=== PATIENT | female | born 1970 | race Caucasian/White ===

== ENCOUNTER 2020-08-30 09:23 | Outpatient (REF) | payer OTHER, SELFPAY ==
[2020-08-30 10:02] LABS: COVID-19 Test Negative (Negative)
== END 2020-08-30 09:24 | disposition home or self-care (01) ==
LOC: HO.EMPCOV 09:23
PROVIDERS: Visit Provider Internal Medicine
DX: Z20.828 Contact with and (suspected) exposure to other viral communicable diseases (principal)
CPT/HCPCS: 87635; C9803

== ENCOUNTER → 2022-06-19 13:04 | Outpatient (RCR) | payer OTHER, SELFPAY ==
[2020-07-19 15:08] LABS: COVID-19 Test Negative (Negative); IDNOW Serial# 55D5AD1C
== END | disposition home or self-care (01) ==
LOC: HO.EMPCOV 07-19 14:33
PROVIDERS: Visit Provider Internal Medicine
DX: Z20.828 Contact with and (suspected) exposure to other viral communicable diseases (principal)
CPT/HCPCS: 87635; C9803

== ENCOUNTER 2022-07-03 05:48 | Outpatient (REF) | payer OTHER, SELFPAY ==
[2022-07-03 06:05] LABS: MANUAL DIFF FLAG NO
[2022-07-03 07:24] LABS: Basophils Percent Auto 0.5 % (0-2); Eosinophils Absolute Auto 0.1 X10*3/uL (0.0-0.4); Eosinophils Percent Auto 0.8 % (0-4); Hematocrit 44.3 % (37.0-47.0); Imm Gran Abs Auto 0.04 X10*3/uL (0.00-0.03); Imm Gran Pct Auto 0.7 % (0.0-0.4); Lymphocytes Absolute Auto 2.1 X10*3/uL (1.2-4.9); Lymphocytes Percent Auto 35.2 % (20-40); Mean Corpuscular HGB Conc 33.9 g/dl (31.0-35.0); Mean Corpuscular Hemoglobin 31.3 pg (27.0-33.0); Mean Corpuscular Volume 92.3 fL (80.0-98.0); Mean Platelet Volume 11.7 fL (9.4-12.3); Monocytes Absolute Auto 0.4 X10*3/uL (0.1-1.2); Monocytes Percent Auto 6.9 % (2-11); Neutrophils Absolute Auto 3.3 x10*3/uL (2.0-8.3); Neutrophils Percent Auto 55.9 % (45-73); Platelet Count 269 X10*3/uL (160-400); Red Cell Distribution Width 12.3 % (11.0-16.0); White Blood Count 5.9 X10*3/uL (4.8-10.8)
[2022-07-03 07:54] LABS: Alanine Aminotransferase 58 U/L (0-31); Albumin Level 4.5 g/dL (3.5-5.0); Alkaline Phosphatase 156 U/L (39-117); Anion Gap 16 (12-20); Aspartate Amino Transferase 37 U/L (5-31); Bilirubin Total 0.7 mg/dL (0.0-1.0); Blood Urea Nitrogen 17 mg/dL (9-16); Carbon Dioxide 28 mmol/L (22-29); Chloride 101 mmol/L (96-108); Cholesterol 251 mg/dL; Estimated Glomerular Filt Rate > 60; Glucose Fasting 90 mg/dL (60-99); HDL Cholesterol 59 mg/dL; LDL Cholesterol Calculated 176 mg/dl; Potassium 4.6 mmol/L (3.3-5.1); Sodium 140 mmol/L (135-145); Total Protein 7.8 g/dL (6.5-8.0); Triglycerides 82 mg/dL
[2022-07-03 08:16] LABS: TSH reflex Free T4 1.38 uIU/mL (0.32-4.0); Vitamin D 25-OH Total 36.6 ng/mL (>30)
[2022-07-03 10:12] LABS: Folate 12.3 ng/mL (> or = 4.0); Vitamin B12 386 pg/mL (200-900)
== END 2022-07-03 05:49 | disposition home or self-care (01) ==
LOC: HO.LAB 05:48
PROVIDERS: Visit Provider Nurse Practitioner Family
DX: Z76.89 Persons encountering health services in other specified circumstances (principal)
CPT/HCPCS: 36415; 80053; 80061; 82306; 82607; 82746; 84443; 85025

== ENCOUNTER 2022-07-04 14:29 | Outpatient (REF) | payer OTHER, SELFPAY ==
--- NOTE | ~2022-07-04 | MM_ITS ---
EXAMINATION: MM SCREENING DIGITAL BREAST TOMOSYNTHESIS, BILATERAL CLINICAL INFORMATION: Screening. Asymptomatic. The lifetime risk of breast cancer based on the Tyrer-Cuzick Model is 7.3%. COMPARISON: Mammography: 10/12/2013 and 12/06/2010. TECHNIQUE: Digital breast tomosynthesis is performed in both the craniocaudal and mediolateral oblique views along with computer-aided detection (CAD). Synthesized 2D images are generated from the tomosynthesis. FINDINGS: The breasts are heterogeneously dense, which may obscure small masses (ACR BI-RADS breast composition Category c). No new abnormal dominant mass is appreciated. There are bilateral groupings of calcifications seen which appear to not be skin calcifications on tomosynthesis views. It is difficult to tell if the groupings of calcifications within the left breast are stable or have increased from previous studies due to the very dense breast parenchyma on previous examinations. Recommend supplementary imaging with craniocaudal and 90-degree mediolateral views of both breasts. MM/MM tomosynthesis screening BI IMPRESSION: Bilateral breast calcifications for further evaluation. ASSESSMENT: BI-RADS 0: Incomplete - Need Additional Imaging Evaluation. RECOMMENDATION: 1. Additional views of both breasts. 2. Targeted ultrasound if warranted after review of the additional views. 3. Radiology department staff will contact the patient for additional imaging. This patient's information was entered into a reminder system with a target due date for their next mammogram.
== END 2022-07-04 14:30 | disposition home or self-care (01) ==
LOC: HO.MAMMO 14:29
PROVIDERS: Visit Provider Nurse Practitioner Family
DX: Z12.31 Encounter for screening mammogram for malignant neoplasm of breast (principal)
CPT/HCPCS: 77063; 77067

== ENCOUNTER 2022-07-10 13:46 | Outpatient (REF) | payer OTHER, SELFPAY ==
--- NOTE | ~2022-07-10 | MM_ITS ---
EXAMINATION: MM DIAGNOSTIC DIGITAL MAMMOGRAPHY, BILATERAL CLINICAL INFORMATION: Recall from screening for fine calcifications bilateral breasts, possibly new or increased from remote prior exam 2013. COMPARISON: Mammography: 07/04/2022, outside mammography 10/12/2013, 12/06/2010 ([place]). TECHNIQUE: Digital mammography is performed in the following views: Magnification left CC, magnification left ML x2, magnification right CC, magnification right ML. FINDINGS: The breasts are heterogeneously dense, which may obscure small masses (ACR BI-RADS breast composition Category c). Additional magnification views right breast demonstrate 3 small uniform round tight groups of calcifications central and anterior medial breast, some visible on remote outside mammography 2013. No pleomorphic types or ductal distribution. Additional magnification views left breast demonstrate tight group of uniform round calcifications central inner breast, some likely present on outside remote mammography 2013. No pleomorphic types or ductal distribution. Results are discussed with the patient at time of visit. The bilateral calcifications have similar characteristics and at least some were present on outside imaging 2014. They are probably benign and will be reassessed again in 6 months. MM/MM added views BI IMPRESSION: Bilateral probable benign tightly grouped calcifications, some present on outside imaging 2013. ASSESSMENT: BI-RADS 3: Probably Benign RECOMMENDATION: Diagnostic bilateral mammography in 6 months. This patient's information was entered into a reminder system with a target due date for their next mammogram.
== END 2022-07-10 13:47 | disposition home or self-care (01) ==
LOC: HO.MAMMO 13:46
PROVIDERS: Visit Provider Nurse Practitioner Family
DX: R92.1 Mammographic calcification found on diagnostic imaging of breast (principal)
CPT/HCPCS: 77066

== ENCOUNTER → 2022-07-14 07:54 | Outpatient (BNVA) | payer OTHER, SELFPAY | PROVIDERS: PCP Nurse Practitioner Family; Visit Provider Physician Assistant Medical | DX: Z13.89 Encounter for screening for other disorder (principal) | CPT/HCPCS: 29515; 73610; 99203 ==

== ENCOUNTER 2022-07-16 11:57 | Outpatient (REF) | payer OTHER, SELFPAY ==
--- NOTE | ~2022-07-16 | XR_ITS ---
EXAMINATION: XR ANKLE, LEFT CLINICAL INFORMATION: Trauma, follow-up probable fracture distal lateral malleolus. COMPARISON: Left ankle radiographs 07/14/2022. TECHNIQUE: AP, lateral, and mortise views of the left ankle. FINDINGS: There is horizontal linear nondisplaced fracture at tip lateral malleolus again noted. Corticated ossicle is also noted adjacent to tip lateral malleolus. The ankle mortise is symmetric. The medial and posterior malleoli appear intact. No visible osteochondral lesion talar dome. XR/XR ankle LT min 3V IMPRESSION: 1. Nondisplaced fracture tip lateral malleolus. Ankle mortise symmetric. 2. Corticated ossicle adjacent to tip lateral malleolus.
== END 2022-07-16 11:58 | disposition home or self-care (01) ==
LOC: HO.HOSX 11:57
PROVIDERS: Visit Provider Physician Assistant
DX: S82.892A Other fracture of left lower leg, initial encounter for closed fracture (principal); W18.09XA Striking against other object with subsequent fall, initial encounter; Y93.9 Activity, unspecified; Y92.9 Unspecified place or not applicable; Y99.9 Unspecified external cause status
CPT/HCPCS: 73610; 99202

== ENCOUNTER 2022-07-25 09:05 | Emergency (ER) | payer OTHER, SELFPAY ==
[2022-07-25 09:10] VITALS: BP 142/85; PULSE 76; RESP 16; TEMP 36.5; O2SAT 98; BMI 27.4
--- NOTE | 2022-07-25 09:12 | ED_ITS ---
HPI - Extremity Injury (Lower) General Chief Complaint: Extremity Injury, Lower Stated Complaint: L ankle inj/work inj Time Seen by Provider: 07/25/22 09:09 Source: patient Mode of arrival: ambulatory Limitations: no limitations History of Present Illness HPI Narrative: 52 yo female with a known left ankle fracture (distal fibula avulsion fx) after a work related injury (fall) on 07/14. Seen by orthopedics 07/16 and placed in walking boot (recommended WBAT, rest, ice, PT). Patient has follow-up in 2 weeks with ortho. Supposed to start PT 08/04. Reports continued pain/swelling despite following orthopedics recommendations. Taking motrin 800mg once daily, supplementing with tylenol. Using boot and has been doing some weight bearing but is uncomfortable. Using a scooter at home and work. No new injury. Related Data Previous Rx's Medication Instructions Recorded ibuprofen 800 mg tablet 800 mg PO TID PRN pain #30 tabs 07/14/22 Allergies Allergy/AdvReac Type Severity Reaction Status Date / Time bees Allergy Intermediate Swelling Uncoded 07/25/22 09:15 Review of Systems Review of Systems: Yes all other systems are reviewed and are negative Constitutional: Constitutional: Reports no additional constitutional complaints, Denies body ache(s), Denies chills, Denies fever(s), Denies headache(s) and Denies weakness Eyes: Eyes: Reports no additional eye complaints and Denies change in vision ENT: Reports system reviewed and no additional complaints, except as documented, Denies dizziness, Denies headache(s), Denies nasal congestion, Denies nasal discharge and Denies neck pain Cardiovascular: Cardiovascular: Reports no additional cardiovascular complaints, Denies chest pain, Denies leg edema and Denies dyspnea Respiratory: Respiratory: Reports no additional respiratory complaints, Denies cough and Denies dyspnea Gastrointestinal: Gastrointestinal: Reports no additional gastrointestinal complaints, Denies abdominal pain, Denies diarrhea, Denies nausea and Denies vomiting Genitourinary: Genitourinary: Reports no additional female genitourinary complaints and Denies urinary incontinence Musculoskeletal: Musculoskeletal: Reports no additional musculoskeletal complaints, Denies back pain, Reports arthralgias, Reports joint swelling, Denies neck pain, Denies numbness and Denies tingling Integumentary/Breasts: Skin/Breast: Reports system reviewed and no additional complaints, except as docu and Denies rash Neurologic: Reports system reviewed and no additional complaints, except as documented, Denies Abnormal speech present, Denies dizziness, Denies headache(s), Denies numbness, Denies tingling and Denies weakness PMFSH Past Medical History Attestation statement: The following information was validated with the patient. Source: old records reviewed and nursing notes reviewed Surgical History H/O tubal ligation Family History Family History Mother Diabetes Asthma Father Lung cancer Social History Social History Housing: House Patient Tobacco Use Status: Never used Tobacco Second Hand Smoke Exposure: No Advance Directives: No Advance Directives Information Provided: No service: No Current occupational status: employed Cognitive needs: No Hearing needs: No Vision needs: No Physical Exam Vital Signs: Vital Signs: Last Vital Signs Temp 97.7 F 07/25/22 09:10 Pulse 76 07/25/22 09:10 Resp 16 07/25/22 09:10 BP 142/85 H 07/25/22 09:10 Pulse Ox 98 07/25/22 09:10 BMI result Body Mass Index 27.4 Const: General: cooperative, healthy appearing, comfortable and no acute distress Orientation/consciousness: patient oriented x3 Limitations: no limitations HEENT: Head: Yes normal to inspection Ears: hearing grossly normal bilaterally General nose exam: Normal external nose present Face and sinus: Yes normal facial exam Mouth: Normal oral and palatal mucosa present Throat: Yes posterior oropharynx normal Eyes: General: appearance normal, both eyes and all related structures Pupils: Equal, round and reactive pupils present Neck: Neck: Yes normal visual inspection Chest: Chest palpation & inspection: normal inspection of the chest Resp: Effort & Inspection: normal respiratory effort Cardio: Peripheral pulses: Peripheral pulses 2+ throughout GI: Inspection: Yes normal to inspection Palpation (GI): Soft to palpation and nontender Auscultation: normal bowel sounds Back/Spine/Pelvis: Thoracic/Lumbar Spine: thoracic and lumbar spine normal to inspection Skin: General skin exam: no rashes or lesions noted Neuro: General: patient oriented x3, no focal motor deficits and normal sensation to monofilament Cranial nerves: Yes Equal, round and reactive pupils present Cognition (Neuro): normal cognition Speech: No Abnormal speech present Gait exam (Neuro): Normal gait present Motor exam (neuro): 5/5 motor strength present throughout Extrem: Other: There is swelling and tenderness to the left lateral ankle Mild tenderness over the posterior ankle with negative orona test. 2+ DP/PT pulses distal sensation normal Pain with ROM but patient able MDM - Extremity Injury (Lower) MDM Narrative Medical decision making narrative: Continued left ankle pain/swelling with diagnosis of left fibula avulsion fracture on 07/14 after work related injury despite WBAT with ortho boot, ice, elevation, prn motrin/tylenol. No new injury or trauma. Patient states I just want to make sure its okay. Concerned over continue pain/swelling 11 days from initial injury. Patient on exam with tenderness/swelling over lateral mallelous. NV intact distally. ROM intact but painful. Seems she is not taking OTC a frequently as allowed. Recommended increasing frequency of motrin/tylenol, continue recommendations from orthopedics and continue to follow with ortho/PT. Fracture with expected healing. Unable to assess ligamental injury d/t swelling Patient may also have sprain/ligamental injury and should continue to follow with ortho. Considered achilles tendon rupture, septic joint Medical Records Attestation: I reviewed the patient's medical records. Lab Data Attestation: I reviewed the patient's lab results. Discharge Plan Discharge Clinical Impression: Avulsion fracture of ankle Patient Disposition: Home, Self-Care Instructions: Ankle Fracture (ED) Additional Instructions: Continue to follow recommendations by Orthopedics Take ibuprofen 3 times daily as needed. Add Tylenol rest, elevation, ice Prescriptions: No Action ibuprofen 800 mg tablet 800 mg PO TID PRN (Reason: pain) Qty: 30 0RF Referrals: [facility] [place] Orthopedic Surgeons [Provider Group] - 5 days Interventions: ED Discharge Assessment Last Done: 07/25/22 09:47 Discharge Date/Time: 07/25/22 09:48
== END 2022-07-25 09:48 | disposition home or self-care (01) ==
PROVIDERS: Emergency Provider Emergency Medicine Emergency Medical Services; PCP Nurse Practitioner Family
DX: M25.572 Pain in left ankle and joints of left foot (principal); S82.402D Unspecified fracture of shaft of left fibula, subsequent encounter for closed fracture with routine healing; X58.XXXD Exposure to other specified factors, subsequent encounter
CPT/HCPCS: 99282

== ENCOUNTER 2022-08-14 12:13 | Outpatient (REF) | payer OTHER, SELFPAY ==
--- NOTE | ~2022-08-14 | XR_ITS ---
EXAMINATION: XR ANKLE, LEFT XR FOOT, LEFT CLINICAL INFORMATION: Fracture, pain. Follow-up. COMPARISON: Radiographs left ankle 07/16/2022, 07/14/2022 TECHNIQUE: Left ankle is imaged in 3 views. Left foot is imaged in 3 views. There are total of 6 views. FINDINGS: There is nondisplaced transverse fracture at tip lateral malleolus. An adjacent corticated ossicle is again noted. The posterior and medial malleoli appear intact and the ankle mortise is symmetric. The subtalar joint is unremarkable. The retrocalcaneal recess is preserved. Again, there is mild spurring from the dorsal navicular. The left foot shows no acute or healing fracture or dislocation or arthropathy. XR/XR ankle LT min 3V IMPRESSION: 1. Nondisplaced transverse fracture tip lateral malleolus, stable. 2. No acute or healing fracture left foot.
--- NOTE | ~2022-08-14 | XR_ITS ---
EXAMINATION: XR ANKLE, LEFT XR FOOT, LEFT CLINICAL INFORMATION: Fracture, pain. Follow-up. COMPARISON: Radiographs left ankle 07/16/2022, 07/14/2022 TECHNIQUE: Left ankle is imaged in 3 views. Left foot is imaged in 3 views. There are total of 6 views. FINDINGS: There is nondisplaced transverse fracture at tip lateral malleolus. An adjacent corticated ossicle is again noted. The posterior and medial malleoli appear intact and the ankle mortise is symmetric. The subtalar joint is unremarkable. The retrocalcaneal recess is preserved. Again, there is mild spurring from the dorsal navicular. The left foot shows no acute or healing fracture or dislocation or arthropathy. XR/XR foot LT min 3V IMPRESSION: 1. Nondisplaced transverse fracture tip lateral malleolus, stable. 2. No acute or healing fracture left foot.
== END 2022-08-14 12:14 | disposition home or self-care (01) ==
LOC: HO.HOSX 12:13
PROVIDERS: Visit Provider Physician Assistant
DX: S82.892D Other fracture of left lower leg, subsequent encounter for closed fracture with routine healing (principal)
CPT/HCPCS: 73610; 73630; 99212

== ENCOUNTER 2022-08-26 09:24 | Outpatient (REF) | payer OTHER, SELFPAY ==
--- NOTE | ~2022-08-26 | US_ITS ---
EXAMINATION: US ABDOMEN LIMITED CLINICAL INFORMATION: Other specified abnormal findings of blood chemistry. COMPARISON: None TECHNIQUE: Real-time imaging of the right upper quadrant abdominal viscera. FINDINGS: PANCREAS: Normal. LIVER: The liver is normal in size. The liver contour is normal. Echogenicity is heterogeneous and borderline increased. No focal hepatic lesion. There is no intrahepatic biliary duct dilatation seen. GALLBLADDER: The gallbladder is physiologically distended without evidence of stones, sludge, polyps, wall thickening or pericholecystic fluid. COMMON BILE DUCT: Normal in caliber measuring 0.5 cm in diameter. RIGHT KIDNEY: A single 5 mm echogenic focus without twinkle artifact seen in the [id number] right kidney which does not meet full criteria for a calculus. No hydronephrosis. No definitive renal calculi or focal parenchymal lesions. The kidney measures 9.5 cm in maximum dimension. FREE FLUID: None. US/US abdomen limited IMPRESSION: Borderline increased echogenicity of the liver.
== END 2022-08-26 09:25 | disposition home or self-care (01) ==
LOC: HO.US 09:24
PROVIDERS: Visit Provider Nurse Practitioner Family
DX: R79.89 Other specified abnormal findings of blood chemistry (principal)
CPT/HCPCS: 76705

== ENCOUNTER 2022-08-29 06:52 | Outpatient (REF) | payer OTHER, SELFPAY ==
[2022-08-29 08:11] LABS: HBS Num1 19.12 mIU/mL (0-7.99); HBc Num1 0.09 S/CO (0.00-0.79); Hepatitis A Antibody IgM 0.14 Index (0-0.79); Hepatitis B Core Antibody Nonreactive (Nonreactive); Hepatitis B Surface Antigen Negative (Negative); ~Hepatitis A Antibody IgM Nonreactive (Nonreactive); ~Hepatitis B Surface Antibody REACTIVE (Nonreactive); ~Hepatitis C Antibody Nonreactive (Nonreactive)
== END 2022-08-29 06:53 | disposition home or self-care (01) ==
LOC: HO.LAB 06:52
PROVIDERS: Visit Provider Nurse Practitioner Family
DX: R79.89 Other specified abnormal findings of blood chemistry (principal)
CPT/HCPCS: 36415; 86704; 86706; 86709; 86803; 87340

== ENCOUNTER 2022-09-25 06:14 | Outpatient (REF) | payer OTHER, SELFPAY | END 2022-09-25 06:15 | disposition home or self-care (01) | LOC: HO.HOSX 06:14 | PROVIDERS: Visit Provider Physician Assistant | DX: Z13.89 Encounter for screening for other disorder (principal) ==

== ENCOUNTER 2022-10-06 14:00 | Outpatient (RCR) | payer OTHER, SELFPAY ==
--- NOTE | 2022-08-04 16:04 | MHC.PT.EP ---
[facility] [place] Office [place] Office [place] Office [address] [phone] F: [phone] F: [phone] F: [phone] F: [phone] Physical Therapy Plan of Care Date of Evaluation: Date of Surgery: NA Diagnosis: Avulsion fracture of L ankle Assessment: Nicolasa is a 53 year old female who is referred to PT for avulsion fracture of L ankle . She sustained the injury secondary to a fall during which she twisted her ankle. She is 3 weeks post injury. She is currently using a walking boot and is WBAT however uses a scooter for long distance ambulation. On PT examination she presented with mild swelling, TTP over lateral malleoli L side, 3/10 pain at the lowest and 6/10 pain with sudden ankle movements, walking, decreased ankle ROM, decreased LE strength, altered posture, balance and gait. She is independent with ADLs but takes longer to complete them. 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 She would benefit from skilled PT to address the aforementioned impairments and improve tolerance to functional activities. Frequency and Duration: The patient will be seen 2/week for 7 weeks Short Term Goals: 1. Pt will have 50% decrease in pain which will enable her to walk with her boot for 30 minutes in 2 weeks. 2. Pt will be able to move her ankle through all planes of motion without pain which will enable her to perform step ups with boot in 3 weeks. Custodial Goals: 1. Pt will demonstrate an increase in muscle strength by 1 grade which will enable her to walk and negotiate stairs without boot in 6 weeks. 2. Pt will be independent with HEP and return to PLOF in 7 weeks. Treatment Plan: Modalities to reduce pain, spasms and effusion. Manual therapy to restore motion and function. Therapeutic exercise to improve strength and flexibility. Neuromuscular re-education for posture and balance. Therapeutic activities to return to functional activities of daily living. Electronically signed by: Tanesha Sheridan PT DPT Please sign and return to therapist. Thank you for your referral.
--- NOTE | 2022-11-25 14:28 | MHC.PT.DC ---
[facility] [place] Office [place] Office [place] Office [address] [phone] F: [phone] F: [phone] F: [phone] F: [phone] Physical Therapy Discharge Report Diagnosis: Avulsion fracture of L ankle Date of Surgery: NA Date of Evaluation: 08/04/22 Date of Discharge: 11/25/22 Treatments to Date: 15 Cancellations to Date: 0 No Shows to Date: Discharge Status: Improved Function Independent with HEP Discharge Summary: Nicolasa completed 15 PT visits and made significant improvements. She was independent with her HEPs as well. She is therefore being d/c from PT. Electronically signed by: Tanesha Sheridan, PT DPT Please sign and return to therapist. Thank you for your referral.
== END 2022-11-25 14:29 | disposition home or self-care (01) ==
LOC: HO.PT 14:00
PROVIDERS: Visit Provider Physician Assistant
DX: S82.892D Other fracture of left lower leg, subsequent encounter for closed fracture with routine healing (principal); M76.72 Peroneal tendinitis, left leg
CPT/HCPCS: 97110; 97112; 97140; 97161

== ENCOUNTER 2022-10-27 11:00 | Outpatient (REF) | payer OTHER, SELFPAY ==
--- NOTE | ~2022-10-27 | XR_ITS ---
EXAMINATION: XR ANKLE, LEFT CLINICAL INFORMATION: Left ankle pain. COMPARISON: 08/14/2022. TECHNIQUE: AP, lateral, and mortise views of the left ankle. XR/XR ankle LT min 3V FINDINGS/IMPRESSION: Old avulsion fractures involving the tip of the lateral malleolus appear unchanged compared with 08/14/2022. No new fracture or dislocation is appreciated. Mild soft tissue swelling is present over the left lateral malleolus, probably improved.
== END 2022-10-27 11:01 | disposition home or self-care (01) ==
LOC: HO.HOSX 11:00
PROVIDERS: Visit Provider Physician Assistant
DX: S82.892D Other fracture of left lower leg, subsequent encounter for closed fracture with routine healing (principal); X58.XXXD Exposure to other specified factors, subsequent encounter
CPT/HCPCS: 73610

== ENCOUNTER 2022-10-28 09:02 | Outpatient (REF) | payer OTHER, SELFPAY ==
--- NOTE | ~2022-10-28 | MR_ITS ---
EXAMINATION: MRI OF THE LEFT FOOT WITHOUT CONTRAST CLINICAL INFORMATION: Sprain of the tarsometatarsal ligament. Pain in the top of the foot. COMPARISON: None TECHNIQUE: Multiplanar MR imaging was obtained through the right forefoot and midfoot without contrast material on a 1.5 [place] magnet. FINDINGS: Lisfranc ligament is intact. No evidence of acute ligamentous injuries at the tarsometatarsal joints. No fracture or malalignment at the midfoot and forefoot. Edema signal is evident in the plantar and distal margins of the second metatarsal head, which may correspond to an osseous contusion. No discrete fracture lines are identified in this region. Degenerative subchondral marrow changes could also account for this signal abnormality, though the second MTP joint appears relatively well-preserved. Mild osteoarthritis is evident at the second toe DIP joint as well as the first MTP joint. Intrinsic foot musculature is normal in signal intensity without atrophy or edema signal. Tendons are intact without tears, tendinosis, or tenosynovitis. Plantar fascia is intact without appreciable fasciitis. MR/MR foot LT wo con IMPRESSION: Intact Lisfranc ligament. Edema signal in the second metatarsal head may correspond to an osseous contusion. No fractures. 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
== END 2022-10-28 09:03 | disposition home or self-care (01) ==
LOC: HO.MRI 09:02
PROVIDERS: Visit Provider Physician Assistant
DX: S93.629A Sprain of tarsometatarsal ligament of unspecified foot, initial encounter (principal); X58.XXXA Exposure to other specified factors, initial encounter; Y93.9 Activity, unspecified; Y92.9 Unspecified place or not applicable; Y99.9 Unspecified external cause status
CPT/HCPCS: 73718

== ENCOUNTER → 2022-11-07 11:39 | Outpatient (BNVA) | payer OTHER, SELFPAY | PROVIDERS: PCP Nurse Practitioner Family; Visit Provider Physician Assistant | DX: Z13.89 Encounter for screening for other disorder (principal) ==

== ENCOUNTER 2023-01-27 14:45 | Outpatient (REF) | payer OTHER, SELFPAY ==
--- NOTE | ~2023-01-27 | MM_ITS ---
EXAMINATION: MM DIAGNOSTIC DIGITAL BREAST TOMOSYNTHESIS, BILATERAL CLINICAL INFORMATION: Short interval six-month follow-up probable benign bilateral tightly grouped calcifications. The lifetime risk of breast cancer based on the Tyrer-Cuzick Model is 7%. COMPARISON: Mammography: 07/10/2022, 07/04/2022 (BI-RADS 0), 10/12/2013 ([place]) TECHNIQUE: Digital breast tomosynthesis is performed in both the craniocaudal and mediolateral oblique views along with computer-aided detection (CAD). Synthesized 2D images are generated from the tomosynthesis. Additional bilateral magnification CC, right magnification ML, and left magnification ML x2 views are obtained. FINDINGS: The breasts are heterogeneously dense, which may obscure small masses (ACR BI-RADS breast composition Category c). There is a fibronodular parenchymal pattern similar to prior exams. No significant mass or architectural abnormality or developing density. Small intramammary node again suggested posterior upper left breast. The axilla and skin contours are unremarkable. Magnification views show stable tightly grouped calcifications similar to prior diagnostic exam, left mid inner quadrant, and right central and right anterior medial breast. Calcifications will be reassessed again at time of annual bilateral mammography, due in 6 months. Results are provided to the patient at time of visit by the technologist. MM/MM tomosynthesis diagnostic BI IMPRESSION: Probable benign tightly grouped calcifications bilateral breasts, similar to prior diagnostic mammography. ASSESSMENT: BI-RADS 3: Probably Benign RECOMMENDATION: Diagnostic mammography at time of annual bilateral exam, due in 6 months. This patient's information was entered into a reminder system with a target due date for their next mammogram.
== END 2023-01-27 14:46 | disposition home or self-care (01) ==
LOC: HO.MAMMO 14:45
PROVIDERS: PCP Nurse Practitioner Family; Visit Provider Nurse Practitioner Family
DX: R92.1 Mammographic calcification found on diagnostic imaging of breast (principal)
CPT/HCPCS: 77062; 77066

== ENCOUNTER 2025-01-24 14:52 | Outpatient (AMB) | payer OTHER, SELFPAY ==
--- NOTE | 2025-01-24 14:57 | MHC.PC.OV ---
Vital Signs 01/24/25 15:01 Height 5 ft 2 in Weight 155 lb 8 oz BMI 28.4 BP 126/78 Blood Pressure Location Lt brachial Position Sitting Pulse 84 Pulse Source Pulse Oximeter Temp 97.3 F Temp Source Temporal Artery Scan Pulse Oximetry (%) 97 Oxygen Delivery Method Room Air Intake Visit Reasons: Physical Try Out Person Required: No Accompanied by: Self / Same As Patient Allergies bees Allergy (Intermediate, Uncoded 01/24/25 15:26) Swelling Tobacco use date assessed: 01/24/25 Dental Screening Dental Screen Date: 01/24/25 Did you have a dental visit in the last 12 months?: Yes Did you have a dental problem in the last 6 months where you did not have access to dental care?: No Was dental information given to patient?: Patient has dentist HPI Physical HPI Details Dentist: no, about a year on a half Eye: Reports that she needs to make an appt Snellen: Right: Left: Corrected vision: no STI screening: Colonoscopy: Reports that she would try the cologard instead Pap Smer: no in a while mammogram: up to date PHQ-9: Flu: up to date COVID: x2 Tdap:2009- given in office today Diet: regular Exercise:no, reports that she does not have any energy. appointment on with obgyn, she is going throughing menopause normal exam. 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 1. Little interest or pleasure in doing things: more than half the days 2. Feeling down, depressed, or hopeless: several days 3. Trouble falling or staying asleep, or sleeping too much: several days 4. Feeling tired or having little energy: several days 5. Poor appetite or overeating: not at all 6. Feeling bad about yourself - or that you are a failure or have let yourself or your family down: not at all 7. Trouble concentrating on things, such as reading the newspaper or watching television: not at all 8. Moving or speaking so slowly that other people could have noticed. Or the opposite - being so fidgety or restless that you have been moving around a lot more than usual: not at all 9. Thoughts that you would be better off or of hurting yourself in some way: not at all Total score: 5 [id number] - PHQ-9 Billing: Yes Source: Developed by Drs. Bismark Flanagan, Yue Ross, Ruddy Stahl and colleagues, with an educational aliyah from [employer]. Thrive Questionnaire Date Thrive assessed: 01/24/25 I am a: Patient What is your living situation today?: I have a steady place to live Within the past 12 months, did the food you bought not last and you didn't have the money to get more?: Never true Within the past 12 months, did you worry whether your food would run out before you got money to buy more?: Never true Do you have trouble paying for medicines?: No Do you have trouble getting transportation to medical appointments?: No Do you have trouble paying your heating and electricity bill?: No Do you have trouble taking care of your child, family member or friend?: No Do you have trouble with day-to-day activities such as bathing, preparing meals, shopping, managing finances, etc.?: No Are you currently unemployed and looking for a job?: No Are you interested in more education?: No Please select the resources that you would like help with: None Currently or been in a relationship where the following occur: No concerns reported THRIVE Score: 0 AUDIT C Alcohol Use Questionnaire (AUDIT-C) 1. How often do you have a drink containing alcohol?: Monthly or less 2. How many drinks containing alcohol do you have on a typical day when you are drinking?: 1 or 2 3. How often do you have six or more drinks on one occasion?: Never Total Score: 1 BLAZE-7 AMB Questionnaire BLAZE-7 Date BLAZE - 7 assessed: 01/24/25 Feeling nervous, anxious, or on edge: 0 = Not at all Not being able to stop or control worryin = Not at all Worrying too much about different things: 1 = Several days Trouble relaxin = Several days Being so restless that it is hard to sit still: 0 = Not at all Becoming easily annoyed or irritable: 1 = Several days Feeling afraid as if something awful might happen: 0 = Not at all Total BLAZE-7 score (0-4 normal; 5-9 mild; 10-14 moderate; 15-21 severe): 3 Source: Developed by Drs. Bismark Flanagan, Yue Ross, Ruddy Stahl and colleagues, with an educational aliyah from [employer]. BLAZE-7 Assessment Billing BLAZE-7 Assessment Tool: BLAZE-7 Assessment 02313 Review of Systems Const Denies headache(s) Eyes Denies loss of vision ENT Denies vertigo, Denies dizziness, Denies headache(s) and Denies sore throat Card Denies chest pain, Denies leg edema and Denies lightheadedness Resp Denies cough, Denies hemoptysis and Denies wheezing GI Denies abdominal pain, Denies melena, Denies constipation, Denies diarrhea and Denies vomiting Denies urinary frequency, Denies dysuria and Denies urinary urgency Musc Denies arthralgias, Denies joint swelling, Denies numbness and Denies tingling Neuro Denies Abnormal speech present, Denies behavioral changes, Denies vertigo, Denies dizziness, Denies headache(s), Denies loss of vision, Denies memory loss, Denies numbness and Denies tingling Psych Denies anxiety, Denies behavioral changes, Denies depression, Denies memory loss and Denies panic attacks Edu/Lymph Denies easy bleeding and Denies easy bruising Aller/Immun Denies wheezing Physical exam (Primary Care) Vital Signs: Last Vital Signs Temp 97.3 F 01/24/25 15:01 Pulse 84 01/24/25 15:01 BP 126/78 01/24/25 15:01 Pulse Ox 97 01/24/25 15:01 Oxygen Delivery Method Room Air 01/24/25 15:01 BMI result Body Mass Index 28.4 Tobacco/Smoking Status: Tobacco use Status Tobacco use date assessed 01/24/25 01/24/25 15:03 Patient Tobacco Use Status Never used Tobacco 01/24/25 14:57 e-Cigarette/Vaping Use Never Used 01/24/25 15:03 PHQ-9: PHQ-9 Score PHQ-9: Total score 5 01/24/25 15:27 Thrive Assessment: Date of Thrive Assessment Date Thrive assessed 01/24/25 01/24/25 15:00 Currently or been in a relationship where the following occur: No concerns reported Const General: healthy appearing, no acute distress, alert and awake Nutritional Appearance: well nourished Orientation/consciousness: oriented to person, oriented to place and oriented to time HENMT Ears: TM's normal bilaterally General nose exam: Normal nasal mucous membranes and turbinates present Eyes Conjunctivae: conjunctivae normal Sclerae: sclerae normal Pupils: Equal, round and reactive pupils present Neck Neck: Yes no lymphadenopathy and Yes no JVD Thyroid: Thyroid normal Carotids: no bruits Resp Effort & Inspection: normal respiratory effort and not tachypneic Auscultation: no crackles, no rales, no rhonchi and no wheezes Cardio Rate: regular rate Rhythm: regular rhythm Heart sounds: no murmurs and normal S1 and S2 GI Palpation (GI): Soft to palpation, nontender, no hepatomegaly and no splenomegaly Auscultation: normal bowel sounds Skin General skin exam: no rashes or lesions noted and dry skin Neuro General: oriented to person, oriented to place and oriented to time Cranial nerves: Yes Equal, round and reactive pupils present Speech: No Abnormal speech present Gait exam (Neuro): Normal gait present Motor exam (neuro): no tremor noted Extrem Right upper extremity: full ROM Left upper extremity: full ROM Right lower extremity: full ROM; no edema Left lower extremity: full ROM; no edema Psych Mental Status: mental status grossly normal Speech and movement: Normal speech and movement present Affect: normal affect Attitude: cooperative Thought process: Normal thought process present Immunizations Boostrix Tdap 2.5 Lf unit-8 mcg-5 Lf/0.5 mL intramuscular syringe Performing Provider: REGINA Medina [place] [facility] [place] [facility] Administered by: TRACY Mtz on 01/24/25 15:43 Dose Route Admin Location Dispensed Lot Number Expiration Date [facility] Regulatory Manager 0.5 mL IM Right Deltoid 0.5 mL [id number] 04/26/27 [id number] [employer] VIS Given Date VIS Provided VIS Publication Date 01/24/25 Single Vaccine 24 Eligibility Eligibility Date Funding Source Not VFC Eligible 01/24/25 Private Coding Additional Codes BLAZE-7 Assessment Billing - BLAZE-7 Assessment Tool: BLAZE-7 Assessment 42142 ([id number]) PHQ-9 - 79817 - PHQ-9 Billing: Yes ([id number]) Assessment & Plan Assessment & Plan Orders: Orders TDaP Immunization Today Z23 - Encounter for immunization Comprehensive [place]. Panel Fast Today E66.3 - Overweight, E78.5 - Hyperlipidemia, unspecified, K76.0 - Fatty (change of) liver, not elsewhere classified, N95.1 - Menopausal and female climacteric states, R53.83 - Other fatigue, R79.89 - Other specified abnormal findings of blood chemistry, Z00.00 - Encounter for general adult medical examination without abnormal findings Lipid Panel Today E66.3 - Overweight, E78.5 - Hyperlipidemia, unspecified, K76.0 - Fatty (change of) liver, not elsewhere classified, N95.1 - Menopausal and female climacteric states, R53.83 - Other fatigue, R79.89 - Other specified abnormal findings of blood chemistry, Z00.00 - Encounter for general adult medical examination without abnormal findings Hemoglobin A1c Today E66.3 - Overweight, E78.5 - Hyperlipidemia, unspecified, K76.0 - Fatty (change of) liver, not elsewhere classified, N95.1 - Menopausal and female climacteric states, R53.83 - Other fatigue, R79.89 - Other specified abnormal findings of blood chemistry, Z00.00 - Encounter for general adult medical examination without abnormal findings Complete Blood Count Auto Diff Today E66.3 - Overweight, E78.5 - Hyperlipidemia, unspecified, K76.0 - Fatty (change of) liver, not elsewhere classified, N95.1 - Menopausal and female climacteric states, R53.83 - Other fatigue, R79.89 - Other specified abnormal findings of blood chemistry, Z00.00 - Encounter for general adult medical examination without abnormal findings TSH reflex Free T4 Today E66.3 - Overweight, E78.5 - Hyperlipidemia, unspecified, K76.0 - Fatty (change of) liver, not elsewhere classified, N95.1 - Menopausal and female climacteric states, R53.83 - Other fatigue, R79.89 - Other specified abnormal findings of blood chemistry, Z00.00 - Encounter for general adult medical examination without abnormal findings UA CC w/rflx Micro + Cult Today E66.3 - Overweight, E78.5 - Hyperlipidemia, unspecified, K76.0 - Fatty (change of) liver, not elsewhere classified, N95.1 - Menopausal and female climacteric states, R53.83 - Other fatigue, R79.89 - Other specified abnormal findings of blood chemistry, Z00.00 - Encounter for general adult medical examination without abnormal findings Vitamin D 25-OH Total Today E66.3 - Overweight, E78.5 - Hyperlipidemia, unspecified, K76.0 - Fatty (change of) liver, not elsewhere classified, N95.1 - Menopausal and female climacteric states, R53.83 - Other fatigue, R79.89 - Other specified abnormal findings of blood chemistry, Z00.00 - Encounter for general adult medical examination without abnormal findings Vitamin B12 and Folate Today E66.3 - Overweight, E78.5 - Hyperlipidemia, unspecified, K76.0 - Fatty (change of) liver, not elsewhere classified, N95.1 - Menopausal and female climacteric states, R53.83 - Other fatigue, R79.89 - Other specified abnormal findings of blood chemistry, Z00.00 - Encounter for general adult medical examination without abnormal findings
[2025-01-24 15:01] VITALS: BP 126/78; PULSE 84; TEMP 36.3; O2SAT 97; BMI 28.4
== END 2025-01-24 15:56 | disposition home or self-care (01) ==
LOC: HO.HMCH 14:53
DX: Z23 Encounter for immunization (principal)

== ENCOUNTER → 2025-01-24 14:52 | Outpatient (BNVA) | payer OTHER, SELFPAY | DX: Z00.00 Encounter for general adult medical examination without abnormal findings (principal); N95.1 Menopausal and female climacteric states; R53.83 Other fatigue; R79.89 Other specified abnormal findings of blood chemistry; E78.00 Pure hypercholesterolemia, unspecified; E66.3 Overweight; K76.0 Fatty (change of) liver, not elsewhere classified; Z23 Encounter for immunization; Z68.28 Body mass index [BMI] 28.0-28.9, adult | CPT/HCPCS: 90471; 90715; 96127 ==

== ENCOUNTER 2025-01-25 05:21 | Outpatient (REF) | payer OTHER, SELFPAY ==
[2025-01-25 05:31] LABS: MANUAL DIFF FLAG NO
[2025-01-25 05:46] LABS: Basophils Percent Auto 0.4 % (0-2); Eosinophils Absolute Auto 0.1 X10*3/uL (0.0-0.4); Eosinophils Percent Auto 0.8 % (0-4); Hematocrit 42.9 % (37.0-47.0); Hemoglobin 14.6 g/dl (12.0-16.0); Imm Gran Abs Auto 0.03 X10*3/uL (0.00-0.03); Imm Gran Pct Auto 0.4 % (0.0-0.4); Lymphocytes Absolute Auto 2.9 X10*3/uL (1.2-4.9); Lymphocytes Percent Auto 39.5 % (20-40); Mean Corpuscular Volume 91.1 fL (80.0-98.0); Mean Platelet Volume 10.3 fL (9.4-12.3); Monocytes Absolute Auto 0.6 X10*3/uL (0.1-1.2); Monocytes Percent Auto 7.6 % (2-11); Neutrophils Absolute Auto 3.8 x10*3/uL (2.0-8.3); Neutrophils Percent Auto 51.3 % (45-73); Platelet Count 257 X10*3/uL (160-400); Red Blood Count 4.71 X10*6/uL (4.20-5.50); Red Cell Distribution Width 12.6 % (11.0-16.0); White Blood Count 7.4 X10*3/uL (4.8-10.8)
[2025-01-25 05:54] LABS: Alanine Aminotransferase 46 U/L (0-31); Albumin Level 4.4 g/dL (3.5-5.0); Alkaline Phosphatase 117 U/L (39-117); Anion Gap 12 (12-20); Aspartate Amino Transferase 30 U/L (5-31); Bilirubin Total 0.6 mg/dL (0.0-1.0); Blood Urea Nitrogen 26 mg/dL (9-16); Calcium 9.5 mg/dL (8.4-10.2); Carbon Dioxide 28 mmol/L (22-29); Chloride 104 mmol/L (96-108); Cholesterol 231 mg/dL (<200); Estimated Glomerular Filt Rate > 60; Glucose Fasting 94 mg/dL (60-99); HDL Cholesterol 49 mg/dL (>40); LDL Cholesterol Calculated 163 mg/dL (<100); Potassium 4.3 mmol/L (3.3-5.1); Sodium 140 mmol/L (135-145); Total Protein 7.7 g/dL (6.5-8.0); Triglycerides 99 mg/dL (<150)
[2025-01-25 06:08] LABS: TSH reflex Free T4 1.54 uIU/mL (0.32-4.0)
[2025-01-25 06:40] LABS: Folate 8.5 ng/mL (> or = 4.0); Vitamin B12 407 pg/mL (200-900)
[2025-01-25 07:35] LABS: Appearance Urine Clear; Color Urine Yellow; Glucose Urine UA Negative (Negative); Leukocyte Esterase Urine Negative (Negative); Nitrite Urine Negative (Negative); Specific Gravity - Urine >= 1.030 (1.005-1.025); Urine Blood Negative (Negative); Urine Ketones Negative (Negative); Urine Protein Negative (Neg-Trace)
[2025-01-25 07:42] LABS: Estimated Average Glucose 114 mg/dL; Hemoglobin A1C 144.0756 umol/L; Hemoglobin A1c % 5.6 % (<6.0); Total Hemoglobin (HGBA1C) 3878.5288 umol/L
== END 2025-01-25 05:22 | disposition home or self-care (01) ==
LOC: HO.LAB 05:21
DX: Z00.00 Encounter for general adult medical examination without abnormal findings (principal); R53.83 Other fatigue; N95.1 Menopausal and female climacteric states; E66.3 Overweight; E78.5 Hyperlipidemia, unspecified; R79.89 Other specified abnormal findings of blood chemistry; K76.0 Fatty (change of) liver, not elsewhere classified
CPT/HCPCS: 36415; 80053; 80061; 81003; 82306; 82607; 82746; 83036; 84443; 85025

== ENCOUNTER 2025-01-26 08:05 | Outpatient (AMB) | payer OTHER, SELFPAY ==
--- NOTE | 2025-01-26 08:08 | MHC.OFFVIS ---
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 She is doing well with associate programmer analyst concerns: Menopause x 5yrs. Hot flashes disrupting sleep, weight gain, no energy. Currently not sexually active >1yr. Denies any vaginal dryness or irritation. STI testing offered; she declines. Attempting to eat a healthy diet. No regular exercise. Works 12 hours daily. Last pap smear; many years ago, negative. Last mammogram; 2023. Colonoscopy is UTD. Denies any family history of breast, ovarian or colon cancer. 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 Cognitive needs: No Hearing needs: No Vision needs: No Female Reproductive History Menstrual control method: permanent sterilization Permanent Sterilization: BTL Age of menopause: 48 Total pregnancies: 3 Full term: 3 Number of Living Children: 3 Date of Mammogram: 01/27/23 (Birad 3) Review of Systems Const All systems reviewed & are unremarkable except as noted in HPI and below Reports as per HPI Eyes Reports no additional complaints ENT Reports no additional complaints Card Reports no additional complaints Resp Reports no additional complaints GI Reports as per HPI and Reports no additional complaints Reports as per HPI Musc Reports no additional complaints Skin/Breast Reports as per HPI Neuro Reports no additional complaints Psych Reports no additional complaints Endo Reports no additional complaints Edu/Lymph Reports no additional complaints Aller/Immun Reports no additional complaints Physical Exam Vital Signs: Last Vital Signs BP 120/80 01/26/25 08:09 BMI result Body Mass Index 28.3 Const General: cooperative, healthy appearing, no acute distress, well developed and alert Orientation/consciousness: patient oriented x3 HEENT Head: Yes normal to inspection Eyes General: appearance normal, both eyes and all related structures Neck Neck: Yes normal visual inspection Thyroid: Thyroid normal Chest Chest palpation & inspection: normal inspection of the chest and other (no puckering, dimpling, peau de orange, retraction, discharge, masses) Breast/axilla inspection: normal inspection of the breasts Breast/axilla palpation: normal palpation of the breasts Resp Effort & Inspection: normal respiratory effort GI Inspection: Yes normal to inspection and Yes scar Palpation (GI): Soft to palpation Rectal Exam - Female: deferred General: Yes bladder normal to palpation External Female Exam: normal external appearance and normal appearance of the urethra Speculum Exam - Vagina: normal appearance of the vagina, normal palpation and normal vaginal discharge Speculum Exam - Cervix: normal appearance of the cervix and normal palpation Bimanual exam- vagina & uterus: normal bimanual exam, normal palpation, uterine size normal, bladder normal to palpation, normal palpation and non-tender Bimanual Exam- Adnexa, other: no masses Skin General skin exam: no rashes or lesions noted Rashes: no rashes Neuro General: patient oriented x3 Cognition (Neuro): normal cognition Extrem General: Yes normal to inspection Psych Attitude: cooperative Thought process: Normal thought process present Assessment & Plan Assessment & Plan (1) Encounter for well woman exam with routine gynecological exam: Code(s): Z01.419 - Encounter for gynecological examination (general) (routine) without abnormal findings Category: Medical Plan: Discussed: Current recommendations for pap smears per ASCCP guidelines. Breast awareness, periodic self breast exams and yearly mammogram. Maintain a healthy lifestyle, well balanced diet including Calcium 1,200 mg and Vitamin D 600 IU daily, and routine exercise. Mediterranean diet handout provided. Contact the office with any postmenopausal bleeding. Patient verbalizes understanding and agrees to the plan of care. She was given opportunity to ask questions and all questions were answered to the best of my ability. RTO in 1 year for annual associate programmer analyst exam. This note is constructed using voice recognition software. While every effort has been made to ensure accuracy, field assembly supervisor errors may have been included. (2) Hot flash, menopausal: Code(s): N95.1 - Menopausal and female climacteric states Category: Medical Plan Perimenopause to menopause transitioning, can affect moods, menstrual cycle and other symptoms such as hot flashes. Avoidance of triggers: ?Alcohol and spicy foods Nonhormonal therapies for hot flashes. Perimenopausal changes. ?Self-help measures include: ?Cooling fabric mattress pad, pillow, wear layered clothing, remote control fan, hydrate well. Literature-Menopause.org handout-website information. [place] Menopausal Society (NAMS)website. ?Literature a various sources and authors. Information on sleep podcast provided. Hot flashes occur up to 80% during menopausal transition. ? Multiple options for treatment would include: ?Gabapentin, HRT, or SSRI's. Review literature and follow up for consult. Total time I personally spent on visit and management today: ?20 minutes. Time spent included review of pertinent office notes in the electronic health record; review of laboratory and imaging results; review of personal family medical history; performing physical exam; discussing diagnosis and plan of care with the patient; documenting the encounter in the EMR. Orders: Orders HPV High risk Today Z01.419 - Encounter for gynecological examination (general) (routine) without abnormal findings MM tomosynthesis screening BI Today Z12.31 - Encounter for screening mammogram for malignant neoplasm of breast Pap Smear Today Z01.419 - Encounter for gynecological examination (general) (routine) without abnormal findings Coding Level of Care Code New Pt Level 2 (36282) New Pt Prev Care 40-64y(90464) Diagnoses Encounter for well woman exam with routine gynecological exam Z01.419 Hot flash, menopausal N95.1
[2025-01-26 08:09] VITALS: BP 120/80; BMI 28.3
== END 2025-01-26 08:53 | disposition home or self-care (01) ==
LOC: HO.HWS 08:05
PROVIDERS: Visit Provider Advanced Practice Midwife
DX: Z01.419 Encounter for gynecological examination (general) (routine) without abnormal findings (principal); N95.1 Menopausal and female climacteric states
CPT/HCPCS: 99386; 99459

== ENCOUNTER 2025-01-26 08:05 | Outpatient (REF) | payer OTHER, SELFPAY ==
[2025-02-01 11:31] LABS: HPV Genotype 16 Negative (Negative); HPV Genotype 18 Negative (Negative); HPV High Risk Negative (Negative)
== END 2025-01-26 08:06 | disposition home or self-care (01) ==
LOC: HO.LNP 08:05
PROVIDERS: Visit Provider Advanced Practice Midwife
DX: Z01.419 Encounter for gynecological examination (general) (routine) without abnormal findings (principal); Z11.51 Encounter for screening for human papillomavirus (HPV); N95.1 Menopausal and female climacteric states
CPT/HCPCS: 87626; 88175

== ENCOUNTER 2025-03-17 08:50 | Outpatient (REF) | payer OTHER, SELFPAY | END 2025-03-17 08:51 | disposition home or self-care (01) | LOC: HO.MAMMO 08:50 | PROVIDERS: Visit Provider Advanced Practice Midwife | DX: Z12.31 Encounter for screening mammogram for malignant neoplasm of breast (principal) | CPT/HCPCS: 77063; 77067 ==

== ENCOUNTER → 2025-03-17 09:00 | Outpatient (BNV) | payer OTHER, SELFPAY | PROVIDERS: Visit Provider Radiology Body Imaging | DX: Z12.31 Encounter for screening mammogram for malignant neoplasm of breast (principal) | CPT/HCPCS: 77063; 77067 ==

== ENCOUNTER → 2025-04-05 14:30 | Outpatient (BNV) | payer OTHER, SELFPAY | PROVIDERS: Visit Provider Internal Medicine | DX: R92.1 Mammographic calcification found on diagnostic imaging of breast (principal) | CPT/HCPCS: 77062; 77066 ==

== ENCOUNTER 2025-04-05 14:51 | Outpatient (REF) | payer OTHER, SELFPAY ==
--- NOTE | ~2025-04-05 | MM_ITS ---
EXAMINATION: MM DIAGNOSTIC DIGITAL BREAST TOMOSYNTHESIS, BILATERAL CLINICAL INFORMATION: Call back from screening for bilateral magnification views to demonstrate 2 years of stability of bilateral calcifications. COMPARISON: Mammography: Comparison is made with relevant prior exams. TECHNIQUE: Digital breast mammography with tomosynthesis is performed in both the craniocaudal and mediolateral oblique views along with computer-aided detection (CAD). FINDINGS: The breasts are heterogeneously dense, which may obscure small masses (ACR BI-RADS breast composition Category c). Faint punctate calcifications in the right central and anterior medial breast and left central inner breast are not significantly changed on prior magnification views dating back to 2022 and demonstrate 2 years of stability therefore benign. There are no significant masses, abnormal calcifications, or other abnormalities. Results are provided to the patient at time of visit by the technologist. MM/MM tomosynthesis added view BI IMPRESSION: Bilateral punctate faint calcifications are stable for more than 2 years and therefore benign. No mammographic evidence of malignancy. ASSESSMENT: BI-RADS BI-RADS 2 - Benign Findings RECOMMENDATION: 1 year F/U This patient's information was entered into a reminder system with a target due date for their next mammogram. Electronically signed by: Marisela Gross DO 04/05/2025 03:24 PM EDT
== END 2025-04-05 14:52 | disposition home or self-care (01) ==
LOC: HO.MAMMO 14:51
PROVIDERS: Visit Provider Advanced Practice Midwife
DX: R92.1 Mammographic calcification found on diagnostic imaging of breast (principal)
CPT/HCPCS: 77062; 77066

== ENCOUNTER 2025-06-14 07:40 | Outpatient (REF) | payer OTHER, SELFPAY ==
[2025-06-14 09:07] LABS: Alanine Aminotransferase 82 U/L (0-31); Albumin Level 4.4 g/dL (3.5-5.0); Alkaline Phosphatase 158 U/L (39-117); Anion Gap 12 (12-20); Aspartate Amino Transferase 45 U/L (5-31); Blood Urea Nitrogen 17 mg/dL (9-16); Calcium 9.8 mg/dL (8.4-10.2); Carbon Dioxide 28 mmol/L (22-29); Chloride 104 mmol/L (96-108); Cholesterol 251 mg/dL (<200); Estimated Glomerular Filt Rate > 60; HDL Cholesterol 53 mg/dL (>40); Potassium 4.2 mmol/L (3.3-5.1); Sodium 140 mmol/L (135-145); Total Protein 7.5 g/dL (6.5-8.0); Triglycerides 144 mg/dL (<150)
== END 2025-06-14 07:41 | disposition home or self-care (01) ==
LOC: HO.LAB 07:40
DX: E78.00 Pure hypercholesterolemia, unspecified (principal); R79.89 Other specified abnormal findings of blood chemistry
CPT/HCPCS: 36415; 80053; 80061

== ENCOUNTER 2025-06-15 15:22 | Outpatient (AMB) | payer OTHER, SELFPAY ==
[2025-06-15 15:38] VITALS: BP 90/62; PULSE 75; RESP 18; TEMP 36.2; O2SAT 94; BMI 28.3
--- NOTE | 2025-06-15 15:38 | MHC.PC.OV ---
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 Accompanied by: Self / Same As Patient Allergies bees Allergy (Intermediate, Uncoded 06/15/25 15:50) Swelling Medication List - Last Reconciled 06/15/25 by REGINA Medina No Known Home Meds Tobacco use date assessed: 06/15/25 Dental Screening Dental Screen Date: 06/15/25 Did you have a dental visit in the last 12 months?: No Did you have a dental problem in the last 6 months where you did not have access to dental care?: No Was dental information given to patient?: No HPI 3 month f/u HPI Details The patient is a 55-year-old female presenting for a follow-up on hypertension, elevated liver enzymes, and hypercholesterolemia, as well as management of menopausal symptoms. Hypertension was noted with a previous low systolic reading of 90 mmHg, prompting a recheck during this visit. The current blood pressure reading is 122/78 mmHg, indicating a stable condition. The patient has a history of fluctuating liver enzyme levels, which have shown a pattern of decreasing and then increasing again. An ultrasound was performed a few years ago, revealing borderline changes, and the patient was advised to manage this through dietary modifications. Hypercholesterolemia was identified, with dietary factors being the primary cause. The patient consumes foods high in cholesterol, such as pork and egg yolks, and has been advised to reduce intake of these foods. Menopausal symptoms, including weight gain and decreased energy, have been attributed to menopause. The patient has been following a Mediterranean diet and taking vitamin B and D supplements but reports no significant improvement. She is worry about cortisol level, will check a random at 8 am. 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 Cognitive needs: No Hearing needs: No Vision needs: No Questionnaire Thrive Questionnaire Date Thrive assessed: 01/24/25 I am a: Patient What is your living situation today?: I have a steady place to live Within the past 12 months, did the food you bought not last and you didn't have the money to get more?: Never true Within the past 12 months, did you worry whether your food would run out before you got money to buy more?: Never true Do you have trouble paying for medicines?: No Do you have trouble getting transportation to medical appointments?: No Do you have trouble paying your heating and electricity bill?: No Do you have trouble taking care of your child, family member or friend?: No Do you have trouble with day-to-day activities such as bathing, preparing meals, shopping, managing finances, etc.?: No Are you currently unemployed and looking for a job?: No Are you interested in more education?: No Please select the resources that you would like help with: None Currently or been in a relationship where the following occur: No concerns reported THRIVE Score: 0 BLAZE-7 AMB Questionnaire BLAZE-7 Date BLAZE - 7 assessed: 01/24/25 Source: Developed by Drs. Bismark Flanagan, Yue Ross, Ruddy Stahl and colleagues, with an educational aliyah from [employer]. Review of Systems Const Denies body aches, Denies chills, Denies fever(s), Denies headache(s) and Denies poor appetite Eyes Reports no additional complaints ENT Denies dysphagia, Denies dizziness, Denies headache(s) and Denies odynophagia Card Denies chest pain, Denies syncope, Denies edema, Denies irregular heart rhythm, Denies lightheadedness and Denies dyspnea Resp Denies cough and Denies dyspnea GI Denies abdominal pain, Denies constipation, Denies dysphagia, Denies diarrhea, Denies nausea, Denies odynophagia and Denies vomiting Reports no additional complaints Musc Reports no additional complaints and Denies abnormal gait Skin/Breast Reports system reviewed and no additional complaints, except as documented Neuro Denies abnormal gait, Denies dizziness, Denies syncope and Denies headache(s) Psych Reports no additional complaints Physical exam (Primary Care) Vital Signs: Last Vital Signs Temp 97.1 F 06/15/25 15:38 Pulse 75 06/15/25 15:38 Resp 18 06/15/25 15:38 BP 90/62 06/15/25 15:38 Pulse Ox 94 06/15/25 15:38 Oxygen Delivery Method Room Air 06/15/25 15:38 BMI result Body Mass Index 28.3 Tobacco/Smoking Status: Tobacco use Status Tobacco use date assessed 06/15/25 06/15/25 15:48 Patient Tobacco Use Status Never used Tobacco 06/15/25 15:45 e-Cigarette/Vaping Use Never Used 06/15/25 15:45 Thrive Assessment: Date of Thrive Assessment Date Thrive assessed 01/24/25 06/15/25 15:45 Currently or been in a relationship where the following occur: No concerns reported Const General: cooperative, healthy appearing, comfortable and no acute distress Orientation/consciousness: patient oriented x3 HENMT Head: Yes normocephalic Ears: hearing grossly normal bilaterally General nose exam: Normal external nose present Eyes General: appearance normal, both eyes and all related structures Conjunctivae: conjunctivae normal Neck Neck: Yes full ROM and Yes no lymphadenopathy Resp Effort & Inspection: normal respiratory effort Auscultation: clear to auscultation bilaterally, no crackles, no rales, no rhonchi and no wheezes Cardio Rate: regular rate Rhythm: regular rhythm Skin General skin exam: no rashes or lesions noted Neuro General: patient oriented x3 Gait exam (Neuro): Normal gait present Extrem General: Yes normal to inspection, Yes full ROM and No edema Psych Affect: normal affect Attitude: cooperative Insight: Good insight present (Psych) Judgement: Good judgement present (Psych) Results Reviewed Results Reviewed: Laboratory Tests 01/25/25 06/14/25 06:00 07:44 Sodium 140 Potassium 4.2 Chloride 104 Carbon Dioxide 28 Anion Gap 12 BUN 17 H Creatinine 0.66 Estimated GFR > 60 Fasting Glucose 81 Calcium 9.8 Total Bilirubin 0.5 AST 45 H ALT 82 H Alkaline Phosphatase 158 H Total Protein 7.5 Albumin 4.4 Triglycerides 144 Cholesterol 251 H LDL Cholesterol, Calc 170 H HDL Cholesterol 53 Urine Color Yellow Urine Appearance Clear Urine pH 6.0 Ur Specific [place] >= 1.030 H Urine Protein Negative Urine Glucose (UA) Negative Urine Ketones Negative Urine Blood Negative Urine Nitrite Negative Ur Leukocyte Esterase Negative Coding Level of Care Code Est Pt Level 3 (40650) Diagnoses Hot flash, menopausal N95.1 Tiredness R53.83 Elevated LFTs R79.89 Pure hypercholesterolemia E78.00 Hyperlipidemia type: pure hypercholesterolemia Overweight (BMI 25.0-29.9) E66.3 Time Spent (min) 36 Assessment & Plan Assessment & Plan (1) Hot flash, menopausal: Code(s): N95.1 - Menopausal and female climacteric states Category: Medical Plan: Patient is scheduled to see OBGYN to discuss these symptoms. She was offered SSRIs by her last PCP, but declined (2) Tiredness: Code(s): R53.83 - Other fatigue Category: Medical Plan: Suspect to be due to menopausal symptoms that is disrupting the patient sleep Patient is not anemic on current blood work and her vitamins are within normal limits (3) Elevated LFTs: Code(s): R79.89 - Other specified abnormal findings of blood chemistry Category: Medical Plan: liver enzymes AST 45, ALT 82, alkaline phosphatase 158 Abdominal ultrasound in 2021 shows hepatic steatosis Reinforced dietary modifications will repeat lipid panel and add GGT in 3 months (4) Hyperlipidemia: Code(s): E78.5 - Hyperlipidemia, unspecified Category: Medical Qualifiers: Hyperlipidemia type: pure hypercholesterolemia Qualified Code(s): E78.00 - Pure hypercholesterolemia, unspecified Plan: Ongoing high cholesterol LDL increased from 163 to 170 mg/dL Reinforced low-cholesterol diet. Patient's wants to continue dietary modifications and hold off on medications for now. We will check lipids in 3 months and advise (5) Overweight (BMI 25.0-29.9): Code(s): E66.3 - Overweight Category: Medical Plan: Encouraged to exercise for at least 30 minutes a day/5 days a week Healthy eating discussed. Encouraged to eat fruits/vegetables, protein-fish/baked chicken, and to avoid salty/fried foods, sweets, caffeine and carbohydrates. Encouraged to increase water intake 6-8 glasses a day cortisol level checked for further evaluation Orders: Orders TSH reflex Free T4 3 Months E66.3 - Overweight, E78.00 - Pure hypercholesterolemia, unspecified, R79.89 - Other specified abnormal findings of blood chemistry Comprehensive [place]. Panel Fast 3 Months E66.3 - Overweight, E78.00 - Pure hypercholesterolemia, unspecified, R79.89 - Other specified abnormal findings of blood chemistry Cortisol Random 06/16/25 E66.3 - Overweight, R53.83 - Other fatigue, R63.5 - Abnormal weight gain UA CC w/rflx Micro + Cult 3 Months E66.3 - Overweight, E78.00 - Pure hypercholesterolemia, unspecified, R79.89 - Other specified abnormal findings of blood chemistry Lipid Panel 3 Months E66.3 - Overweight, E78.00 - Pure hypercholesterolemia, unspecified, R79.89 - Other specified abnormal findings of blood chemistry Gamma Glutamyl Transpeptidase 2 Months R79.89 - Other specified abnormal findings of blood chemistry
== END 2025-06-15 16:16 | disposition home or self-care (01) ==
LOC: HO.HMCH 15:23
DX: N95.1 Menopausal and female climacteric states (principal); R53.83 Other fatigue; R79.89 Other specified abnormal findings of blood chemistry; E78.00 Pure hypercholesterolemia, unspecified; E66.3 Overweight

== ENCOUNTER 2025-06-16 05:57 | Outpatient (REF) | payer OTHER, SELFPAY | END 2025-06-16 05:58 | disposition home or self-care (01) | LOC: HO.LAB 05:57 | DX: R53.83 Other fatigue (principal); E66.3 Overweight | CPT/HCPCS: 36415; 82533 ==